=== PATIENT | female | born 1995 | race Two or more races ===

== ENCOUNTER 2021-07-28 18:18 | Emergency (ER) | payer MEDICAID, OTHER ==
[~2021-07-28] VITALS: Ht 157.5 cm; Wt 53.5 kg
[2021-07-28 23:55] VITALS: BP 103/65
[2021-07-29 00:10] LABS: Urine Bacteria NONE SEEN /hpf (None Seen); Urine Blood Negative /uL (Negative); Urine Mucus FEW (None Seen); Urine Specific Gravity 1.038 (1.001-1.035); Urine WBC 7 /hpf (0 - 5)
[2021-07-29] MEDS ORDERED: METR500T PO (08:23)
[2021-07-29] MEDS ORDERED: cefTRIAXone SOD 500 MG VL IM ONE (08:30)
[2021-07-29] MEDS ORDERED: AZITHROMYCIN 250 MG TAB PO ONE (08:30)
== END 2021-07-29 08:44 | disposition home or self-care (01) ==
LOC: ER 18:24
DX: N76.0 Acute vaginitis (principal); B96.89 Other specified bacterial agents as the cause of diseases classified elsewhere; Z20.2 Contact with and (suspected) exposure to infections with a predominantly sexual mode of transmission
CPT/HCPCS: 81001; 87210; 87491; 87591; 96372; 99283; J0696

== ENCOUNTER 2022-09-16 11:42 | Emergency (ER) | payer MEDICAID ==
[~2022-09-16] VITALS: Ht 154.9 cm; Wt 50.2 kg
[~2022-09-16 11:42] MED LIST: METR500T PO; PANT40TA2 PO
[2022-09-16 13:36] VITALS: BP 108/58
[2022-09-16] MEDS ORDERED: NAPR500T31 PO (13:37)
[2022-09-16 14:25] LABS: Urine Bacteria NONE SEEN /hpf (None Seen); Urine Blood Negative /uL (Negative); Urine Budding Yeast LOADED /hpf (None Seen); Urine Mucus FEW (None Seen); Urine Specific Gravity 1.024 (1.001-1.035); Urine WBC 35 /hpf (0 - 5); Urine WBC Clumps PRESENT /hpf (None Seen)
== END 2022-09-16 13:44 | disposition home or self-care (01) ==
LOC: ER 11:42
DX: S29.012A Strain of muscle and tendon of back wall of thorax, initial encounter (principal); Z88.6 Allergy status to analgesic agent; V49.9XXA Car occupant (driver) (passenger) injured in unspecified traffic accident, initial encounter; Y93.89 Activity, other specified; Y92.89 Other specified places as the place of occurrence of the external cause; Y99.8 Other external cause status
CPT/HCPCS: 81001